=== PATIENT | male | born 1990 | race African-American/Black ===

== ENCOUNTER 2023-12-24 17:09 | Emergency (ER) | payer MEDICAID ==
[~2023-12-24] VITALS: Ht 172.7 cm; Wt 72.7 kg
[2023-12-24 17:23] VITALS: TEMP 98.2
[2023-12-24] MEDS: TraMADol HCL 50 MG TABLET PO ONE (20:27)
[2023-12-24 21:15] VITALS: BP 119/74; PULSE 74; RESP 17; O2SAT 98
== END 2023-12-24 22:51 | disposition home or self-care (01) ==
LOC: EMS 17:09
DX: M54.6 Pain in thoracic spine (principal); V49.88XA Car occupant (driver) (passenger) injured in other specified transport accidents, initial encounter; Y93.89 Activity, other specified; Y92.89 Other specified places as the place of occurrence of the external cause; Y99.8 Other external cause status
CPT/HCPCS: 71045; 72040; 72072; 99284